=== PATIENT | male | born 1955 | race Hispanic/Latino ===

== ENCOUNTER 2017-04-27 20:08 | Emergency (ER) | payer OTHER ==
--- NOTE | 2017-04-27 20:27 | Emergency Department Report ---
HPI - General Time Seen by Provider: 04/27/17 20:13 - HPI HPI: This is a 61-year-old male presents to the emergency department by EMS from home with complaint of questionable stroke. The patient's noticed that he was having some left-sided weakness and appeared to have a left- sided facial droop around 7 PM this evening. Since that time he appears to have improved but still feels like he is slightly confused or unable to answer questions appropriately or slow to do so. He denies any significant headache. He denies any vision change, chest pain, shortness of breath, nausea, vomiting. He has a history of diabetes and doesn't history of 5 previous strokes but says there are no residual deficits. He did not take anything was not given anything for his symptoms prior presentation. He is not on any blood thinners. He does follow with a neurologist for history of headaches. ED Past Medical Hx - Medications Home Medications: Home Medications Medication Instructions Recorded Confirmed Last Taken Type AtorvaSTATin [Lipitor] 40 mg PO QHS 04/27/17 04/27/17 04/27/17 History Metformin HCl [Metformin HCl ER] 500 mg PO BID 04/27/17 04/27/17 04/27/17 History carBAMazepine [TEGretol] 100 mg PO ONCE 04/27/17 04/27/17 04/27/17 History glipiZIDE [glipiZIDE XL] 5 mg PO TID 04/27/17 04/27/17 04/27/17 History ED Review of Systems ROS: Stated complaint: POSS CVA Other details as noted in HPI Comment: All other systems reviewed and negative Constitutional: weakness. denies: chills, fever Eyes: denies: eye pain, eye discharge, vision change ENT: denies: ear pain, throat pain Respiratory: denies: cough, shortness of breath, wheezing Cardiovascular: denies: chest pain, palpitations Gastrointestinal: denies: abdominal pain, nausea, diarrhea Genitourinary: denies: urgency, dysuria Musculoskeletal: denies: back pain, joint swelling, arthralgia Skin: denies: rash, lesions Neurological: weakness, confusion Physical Exam - Physical Exam Physical Exam: GENERAL: The patient is well-developed well-nourished. HENT: Normocephalic. Atraumatic. Patient has moist mucous membranes. EYES: Extraocular motions are intact. Pupils equal reactive to light bilaterally. NECK: Supple. Trachea is midline. CHEST/LUNGS: Clear to auscultation. There is no respiratory distress noted. HEART/CARDIOVASCULAR: Regular. There is no tachycardia. There is no gallop rub or murmur. ABDOMEN: Abdomen is soft, nontender. Patient has normal bowel sounds. There is no abdominal distention. SKIN: Skin is warm and dry. NEURO: The patient is awake, alert, and oriented. The patient is cooperative. No pronator drift. No dysmetria. Subjective decreased sensation to the left side of the face. The patient has normal speech. Cranial nerves II through XII grossly intact. MUSCULOSKELETAL: There is no tenderness or deformity. There is no limitation range of motion. There is no evidence of acute injury. Muscle strength 5 out of 5 upper and lower extremities bilaterally. ED Course - Reevaluation(s) Reevaluation #1: I once again spoke to the patient after his CT angiography giving him the results and reiterating the plan of admission. At this point the patient says that he feels that he is at his baseline mental status and does not think that he needs to be admitted. I continue to urge him to change his mind but he says "you're going to have a tough time getting me to stay." I spoke to him in great detail about the diagnosis of TIA, the increased chance of a larger caliber CVA in the near future, the further testing that is required. He also understands that leaving AGAINST MEDICAL ADVICE could lead to disability, coma, . Despite all this he understands and is still signed out AGAINST MEDICAL ADVICE. He will plan to follow up with his PCP and neurologist. 04/27/17 22:53 - Consultations Consultation #1: 04/27/17 20:45 I spoke to the telemedicine neurologist, Dr Romero, who feels it would be prudent to get a CT angiography of the head and neck but agrees that he sounds more like a TIA or resolving CVA and will most likely need admission with a MRI in the morning. ED Medical Decision Making - Lab Data Result diagrams: 04/27/17 20:17 04/27/17 20:17 - Radiology Data Radiology results: report reviewed EXAM: CT HEAD/BRAIN WO CON HISTORY: suspected stroke TECHNIQUE: Standard unenhanced CT of the head at 5.0 millimeter axial increments. PRIORS: None. FINDINGS: There is a low-density focal area of prior infarct involving the posterior right temporal lobe. There is also a small area of low-density in the periventricular white matter lateral to the left frontal horn suggesting small vessel ischemic changes. The ventricular system is normal in size and configuration. There is no evidence for parenchymal volume loss. There is no evidence for mass lesion, mass effect, midline shift, acute intracranial hemorrhage, or acute ischemia/ infarction. No evidence for acute skull fracture is seen. No abnormality in the overlying scalp soft tissues is seen. Visualized paranasal sinuses are clear. IMPRESSION: No acute intracranial process noted. 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 PROCEDURE: CT ANGIO NECK TECHNIQUE: Computerized tomographic angiography of the neck was performed after the IV injection of iodinated nonionic contrast including image processing. The image data was postprocessed using 2-dimensional multiplanar reformatted (MPR) and 3-dimensional (MIP and/or volume rendered) techniques. HISTORY: CVA COMPARISON: No prior studies are available for comparison. Note: Assessment of carotid artery stenosis is based on measurement of the distal internal carotid artery diameter as the denominator for stenosis calculations and the [place] Symptomatic Carotid Endarterectomy Trial (NASCET) stenosis criteria . CPT 3100F FINDINGS: Sinuses: Normal . Non vascular cervical structures: No significant abnormality . Aortic arch: Aortic arch is of normal caliber. There is direct origin of the left vertebral artery from the arch which is a normal variation.. Right carotid artery: Mild degree soft plaque formation is noted involving the proximal right internal carotid artery resulting in Left carotid artery: Mild degree calcified plaque formation is noted involving the proximal internal carotid resulting in T lt; 50 percent stenosis.. Vertebral arteries: Right vertebral artery is diffusely narrow in caliber with evidence of a moderate degree stenosis at the origin. There is direct origin of the left vertebral artery from the arch which is widely patent.. IMPRESSION: arteries Moderate degree stenosis of the origin with diffusely narrow caliber of the right vertebral. PROCEDURE: CT ANGIO HEAD TECHNIQUE: Computerized tomographic angiography of the head was performed after the IV injection of iodinated nonionic contrast including image processing. The image data was postprocessed using 2-dimensional multiplanar reformatted (MPR) and 3-dimensional (MIP and/or volume rendered) techniques. HISTORY: CVA COMPARISON: No prior studies are available for comparison. FINDINGS: 2.1 centimeter polypoid lesion is noted in the right maxillary sinus consistent with a mucous retention cyst. Cerebrum: Encephalomalacia involving right posterior temporal lobe is again noted as seen in the CT head 04/27/2017. Cerebellum: No evidence of hemorrhage, acute ischemia or mass. Subarachnoid spaces and ventricles: Normal. Intracranial vessels: Carotid siphon: Moderate degree stenosis is noted involving the supraclinoid portion of right internal carotid artery secondary to calcified plaque formation. Anterior cerebral: Normal. Middle cerebral: Normal. Posterior cerebral:There is patent right posterior communicating artery which is a normal variation. Vertebral arteries including basilar: Normal. Aneurysms: None. Dural sinuses: Normal. IMPRESSION: Moderate degree stenosis of supraclinoid right internal carotid. Otherwise unremarkable study - Medical Decision Making This is a 61-year-old male who presents to the emergency department after he had some left-sided facial droop, left-sided weakness and numbness. His symptoms greatly improved prior to presentation. On the primary physical exam I did, he has a NIH stroke scale of 1 based on left-sided facial subjective decreased sensation and/or numbness. Stat CT of the head was done that did not show any bleed, shift, mass or any acute processes. Rest of labs are mostly unremarkable and do not show any etiology of his symptoms. Telemedicine neurology recommended CT angiography done. CTA of the head is unremarkable. CT angiography of the neck shows a moderate degree of stenosis of the right internal carotid but no sign of any obvious thrombus. I spoke to the patient and his and let them know the results of the CT scans showing that there was no thrombus but there are multiple areas of stenosis. I also let them know that it was important to be admitted for a MRI, probable carotid ultrasound, and further evaluation. However the patient refuses admission as he says he is back to his normal baseline and feels that he can just follow up with his primary care physician and neurologist in the morning. I spent a while telling him the risks of leaving AGAINST MEDICAL ADVICE and that his stenosis needs further evaluation, plus further imaging and evaluation for what appears to be a TIA. He understands that leaving could result in a worse caliber stroke, disability, coma, . Despite this he has signed out AGAINST MEDICAL ADVICE. He understands that he can return if he changes his mind or any acute distress. - Differential Diagnosis CVA, TIA, hypoglycemia, brain bleed Critical Care Time: No Critical care attestation.: If time is entered above; I have spent that time in minutes in the direct care of this critically ill patient, excluding procedure time. ED Disposition Clinical Impression: Hyperglycemia TIA (transient ischemic attack) Qualifiers: Transient cerebral ischemia type: unspecified Qualified Code(s): G45.9 - Transient cerebral ischemic attack, unspecified Disposition: -07 LEFT AGAINST MED ADVICE Is pt being admited?: No Condition: Stable Additional Instructions: Return to the emergency department immediately if you change your mind about admission and further evaluation or with any acute distress. Referrals: PRIMARY CAREMD [Primary Care Provider] - JAIMIE Forms: AMA Form Time of Disposition: 22:50
--- NOTE | 2017-04-27 20:30 | Cat Scan Report ---
FINAL REPORT EXAM: CT HEAD/BRAIN WO CON HISTORY: suspected stroke TECHNIQUE: Standard unenhanced CT of the head at 5.0 millimeter axial increments. PRIORS: None. FINDINGS: There is a low-density focal area of prior infarct involving the posterior right temporal lobe. There is also a small area of low-density in the periventricular white matter lateral to the left frontal horn suggesting small vessel ischemic changes. The ventricular system is normal in size and configuration. There is no evidence for parenchymal volume loss. There is no evidence for mass lesion, mass effect, midline shift, acute intracranial hemorrhage, or acute ischemia/ infarction. No evidence for acute skull fracture is seen. No abnormality in the overlying scalp soft tissues is seen. Visualized paranasal sinuses are clear. IMPRESSION: No acute intracranial process noted. 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
[2017-04-27 20:38] LABS: Basophils % (Auto) 0.8 % (0.0-1.8); Eosinophils % (Auto) 2.6 % (0.0-4.3); Hematocrit 41.6 % (35.5-45.6); Hemoglobin 14.3 gm/dl (11.8-15.2); Mean Corpuscular HGB Conc 34 % (32-34); Mean Corpuscular Hemoglobin 29 pg (28-32); Mean Corpuscular Volume 85 fl (84-94); Platelet Count 180 K/mm3 (140-440); Red Blood Count 4.92 M/mm3 (3.65-5.03); White Blood Count 6.5 K/mm3 (4.5-11.0)
[2017-04-27 20:48] VITALS: BP 146/60
[2017-04-27 20:49] LABS: INR 0.93 (0.87-1.13)
[2017-04-27 20:50] LABS: Partial Thromboplastin Time 29.2 Sec. (24.2-36.6)
[2017-04-27 20:51] LABS: Creatine Kinase MB 1.8 ng/mL (0.0-4.0)
[2017-04-27 20:53] LABS: Alanine Aminotransferase 24 units/L (7-56); Albumin 4.4 g/dL (3.9-5); Albumin/Globulin Ratio 1.4 %; Alkaline Phosphatase 83 units/L (35-129); Anion Gap 23 mmol/L; BUN/Creatinine Ratio 27.14; Blood Urea Nitrogen 19 mg/dL (9-20); Calcium 9.1 mg/dL (8.4-10.2); Carbon Dioxide 20 mmol/L (22-30); Chloride 100.5 mmol/L (98-107); Creatine Kinase 65 units/L (55-170); Glucose 213 mg/dL (75-100); Potassium 4.2 mmol/L (3.6-5.0); Sodium 139 mmol/L (137-145); Total Protein 7.5 g/dL (6.3-8.2)
--- NOTE | 2017-04-27 22:31 | Cat Scan Report ---
FINAL REPORT PROCEDURE: CT ANGIO HEAD TECHNIQUE: Computerized tomographic angiography of the head was performed after the IV injection of iodinated nonionic contrast including image processing. The image data was postprocessed using 2-dimensional multiplanar reformatted (MPR) and 3-dimensional (MIP and/or volume rendered) techniques. HISTORY: CVA COMPARISON: No prior studies are available for comparison. FINDINGS: 2.1 centimeter polypoid lesion is noted in the right maxillary sinus consistent with a mucous retention cyst. Cerebrum: Encephalomalacia involving right posterior temporal lobe is again noted as seen in the CT head 04/27/2017. Cerebellum: No evidence of hemorrhage, acute ischemia or mass. Subarachnoid spaces and ventricles: Normal. Intracranial vessels: Carotid siphon: Moderate degree stenosis is noted involving the supraclinoid portion of right internal carotid artery secondary to calcified plaque formation. Anterior cerebral: Normal. Middle cerebral: Normal. Posterior cerebral:There is patent right posterior communicating artery which is a normal variation. Vertebral arteries including basilar: Normal. Aneurysms: None. Dural sinuses: Normal. IMPRESSION: Moderate degree stenosis of supraclinoid right internal carotid. Otherwise unremarkable study
--- NOTE | 2017-04-27 22:42 | Cat Scan Report ---
FINAL REPORT PROCEDURE: CT ANGIO NECK TECHNIQUE: Computerized tomographic angiography of the neck was performed after the IV injection of iodinated nonionic contrast including image processing. The image data was postprocessed using 2-dimensional multiplanar reformatted (MPR) and 3-dimensional (MIP and/or volume rendered) techniques. HISTORY: CVA COMPARISON: No prior studies are available for comparison. Note: Assessment of carotid artery stenosis is based on measurement of the distal internal carotid artery diameter as the denominator for stenosis calculations and the [place] Symptomatic Carotid Endarterectomy Trial (NASCET) stenosis criteria . CPT 3100F FINDINGS: Sinuses: Normal . Non vascular cervical structures: No significant abnormality . Aortic arch: Aortic arch is of normal caliber. There is direct origin of the left vertebral artery from the arch which is a normal variation.. Right carotid artery: Mild degree soft plaque formation is noted involving the proximal right internal carotid artery resulting in \T\lt; 50 percent stenosis. Left carotid artery: Mild degree calcified plaque formation is noted involving the proximal internal carotid resulting in \T\lt; 50 percent stenosis.. Vertebral arteries: Right vertebral artery is diffusely narrow in caliber with evidence of a moderate degree stenosis at the origin. There is direct origin of the left vertebral artery from the arch which is widely patent.. IMPRESSION: \T\lt; 50 percent stenoses of bilateral proximal internal carotid arteries Moderate degree stenosis of the origin with diffusely narrow caliber of the right vertebral.
[2017-04-27] MEDS ORDERED: BABY ASPIRIN PO ONE ×2 (22:46→22:53)
== END 2017-04-27 23:00 | disposition left against medical advice (07) ==
LOC: ED 20:08
DX: G45.9 Transient cerebral ischemic attack, unspecified (principal); E11.65 Type 2 diabetes mellitus with hyperglycemia
CPT/HCPCS: 36415; 70450; 70496; 70498; 80053; 82550; 82553; 82962; 84484; 85025; 85610; 85670; 85730; 86850; 86900; 86901; 93005; 93010; 99285; G0480; Q9967; 80320